=== PATIENT | male | born 1950 | race Caucasian/White ===

== ENCOUNTER 2021-05-12 11:06 | Day surgery (SDC) | payer MEDICARE, BC ==
[~2021-05-12 11:06] MED LIST: Cefuroxime 10 MG/ML SYRINGE EYERT SCH
[2021-05-12] MEDS: Polymyxin B/Trimethoprim 10 ML Bottle EYERT SCH ×4 (11:51→14:26)
[2021-05-12] MEDS: Brimonidine 0.2% Ophth Soln 5 ML Bottle EYERT SCH ×4 (11:56→14:25)
[2021-05-12] MEDS: Phenylephrine 2.5% Ophth Soln 2 ML Bot EYERT SCH ×6 (12:01→14:24)
--- NOTE | 2021-05-12 12:04 | PCM.PREANE ---
Preanesthetic Assessment - Procedure Proposed Procedure: Right cataract extraction and IOL - Anesthesia/Transfusion/Family Hx Anesthesia History: No Prior Anesthesia Family History of Anesthesia Reaction: No Transfusion History: Prior Transfusion Without Reaction Intubation History: Unknown - Review of Systems General: No Symptoms Pulmonary: Cough (chronic cough) Cardiovascular: No Symptoms Gastrointestinal: No Symptoms Neurological: No Symptoms - Physical Assessment NPO Status Date: 05/12/21 NPO Status Time: 03:00 Vital Signs: Last Vital Signs Temp 98.4 F 05/12/21 11:20 Pulse 52 L 05/12/21 11:20 Resp 16 05/12/21 11:20 BP 167/87 H 05/12/21 11:20 Pulse Ox 96 05/12/21 11:20 Height: 1.83 m Weight: 79.379 kg ASA Class: 2 Mental Status: Alert & Oriented x3 Airway Class: Mallampati = 2 Dentition: Reports: Broken Tooth/Teeth, Missing Tooth/Teeth, Caries Thyro-Mental Finger Breadths: 3 Mouth Opening Finger Breadths: 3 ROM/Head Extension: Full Lungs: Clear to Auscultation, Normal Respiratory Effort Cardiovascular: Regular Rate, Regular Rhythm, No Murmurs - Allergies Allergies/Adverse Reactions: Allergies Allergy/AdvReac Type Severity Reaction Status Date / Time cephalexin [From Keflex] Allergy Rash Verified 05/12/21 11:36 - Acknowledgements Anesthesia Type Planned: MAC Pt an Appropriate Candidate for the Planned Anesthesia: Yes Alternatives and Risks of Anesthesia Discussed w Pt/Guardian: Yes Pt/Guardian Understands and Agrees with Anesthesia Plan: Yes PreAnesthesia Questionnaire HEENT History: Reports: Allergic Rhinitis Cardiovascular History: Reports: Blood Clots/VTE/DVT (bilateral legs), High Chol esterol Respiratory History: Reports: COPD Gastrointestinal History: Reports: GERD (well controlled) Genitourinary History: Reports: Other (See Below) Other Genitourinary History: hx kidney stones Musculoskeletal History: Reports: Arthritis Neurological History: Reports: None Psychiatric History: Reports: None Endocrine/Metabolic History: Reports: None Hematologic History: Reports: Anticoagulation Therapy Immunologic History: Reports: None Oncologic (Cancer) History: Reports: None Dermatologic History: Reports: None - Past Surgical History Male Surgical History: Reports: Renal Calculus, Other (See Below) (kidney surgery for kidney stones) - SUBSTANCE USE Tobacco Use Status *Q: Former Tobacco User (quit greater than 20 years ago) Tobacco Use Within Last Twelve Months: Snuff/Dip Second Hand Smoke Exposure: No Days Per Week of Alcohol Use: 7 Number of Drinks Per Day: 2 Total Drinks Per Week: 14 Recreational Drug Use History: No - HOME MEDS Home Medications: Home Meds Omeprazole 20 mg PO DAILY 05/12/21 [History] Rivaroxaban [Xarelto] 10 mg PO DAILY 05/12/21 [History] Tiotropium [Spiriva] 1 puff INH BID 05/12/21 [History] atorvaSTATin [Lipitor] 10 mg PO BEDTIME 05/12/21 [History] - CURRENT (IN HOUSE) MEDS Current Meds: Current Medications Brimonidine Tartrate (Brimonidine 0.2% Ophth Soln 5 Ml Bottle) 0 ml EYERT ASDIRECTED FINESSE Stop: 05/12/21 16:00 Last Admin: 05/12/21 11:56 Dose: 1 drop Documented by: Cefuroxime Sodium (Cefuroxime 10 Mg/Ml Syringe) 0 mg EYERT ASDIRECTED FINESSE Lidocaine HCl (Lidocaine 1% Pf 2 Ml Sdv) 0 ml INJECT ASDIRECTED FINESSE Stop: 05/12/21 16:00 Phenylephrine HCl (Phenylephrine 2.5% Ophth Soln 2 Ml Bot) 0 ml EYERT ASDIRECTED FINESSE Stop: 05/12/21 16:00 Pilocarpine HCl (Pilocarpine 4% Ophth Soln 15 Ml Bot) 0 ml EYERT ASDIRECTED FINESSE Stop: 05/12/21 16:00 Polymyxin/Trimethoprim Sulfate (Polymyxin B/Trimethoprim 10 Ml Bottle) 0 ml EYERT ASDIRECTED FINESSE Stop: 05/12/21 16:00 Last Admin: 05/12/21 11:51 Dose: 1 drop Documented by: Tetracaine HCl (Tetracaine Hcl/Pf 0.5% 4 Ml Bottle) 0 ml EYEBOTH ASDIRECTED FINESSE Stop: 05/12/21 16:00 Tropicamide (Tropicamide 1% Ophth Soln 15 Ml Bottle) 0 ml EYERT ASDIRECTED FINESSE Stop: 05/12/21 16:00
[2021-05-12] MEDS: Tropicamide 1% Ophth Soln 15 ML Bottle EYERT SCH ×4 (12:06→12:49)
[2021-05-12] MEDS: Tetracaine HCl/PF 0.5% 4 ML Bottle EYEBOTH SCH ×5 (13:14→14:24)
[2021-05-12] MEDS: Lidocaine 1% PF 2 ML SDV INJECT SCH ×2 (13:37→14:24)
[2021-05-12] MEDS: Pilocarpine 4% Ophth Soln 15 ML Bot EYERT SCH ×2 (13:53→14:25)
--- NOTE | 2021-05-12 13:54 | PCM48HPAN ---
Post Anesthesia Note - EVALUATION WITHIN 48HRS OF ANESTHETIC Vital Signs in Normal Range: Yes Patient Participated in Evaluation: Yes Respiratory Function Stable: Yes Airway Patent: Yes Cardiovascular Function Stable: Yes Hydration Status Stable: Yes Pain Control Satisfactory: Yes Nausea and Vomiting Control Satisfactory: Yes Mental Status Recovered: Yes Vital Signs: Last Vital Signs Temp 36.9 C 05/12/21 11:20 Pulse 52 L 05/12/21 11:20 Resp 16 05/12/21 11:20 BP 167/87 H 05/12/21 11:20 Pulse Ox 96 05/12/21 11:20
== END 2021-05-12 14:03 | disposition home or self-care (01) ==
LOC: JD.SDS 11:06
PROVIDERS: ATTEND Ophthalmology
DX: H25.813 Combined forms of age-related cataract, bilateral (principal); H02.831 Dermatochalasis of right upper eyelid; H02.834 Dermatochalasis of left upper eyelid; H16.223 Keratoconjunctivitis sicca, not specified as Sjogren's, bilateral; H21.81 Floppy iris syndrome; H21.41 Pupillary membranes, right eye; E78.00 Pure hypercholesterolemia, unspecified; Z98.890 Other specified postprocedural states; Z87.891 Personal history of nicotine dependence; Z79.01 Long term (current) use of anticoagulants; Z88.8 Allergy status to other drugs, medicaments and biological substances
CPT/HCPCS: V2632